=== PATIENT | female | born 1990 | race Caucasian/White ===

== ENCOUNTER 2021-04-13 01:35 | Emergency (ER) | payer SELFPAY ==
[2021-04-13 01:40] VITALS: BP 102/63
== END 2021-04-13 10:00 ==
LOC: ED 01:35
DX: R51.9 Headache, unspecified (principal); M79.10 Myalgia, unspecified site; R09.81 Nasal congestion; Z53.21 Procedure and treatment not carried out due to patient leaving prior to being seen by health care provider